=== PATIENT | female | born 1975 | race Caucasian/White ===

== ENCOUNTER → 2017-12-05 | Outpatient (CLI) | payer OTHER | LOC: FIMAGING 12:13 → MERGE 12:13 | PROVIDERS: ATTEND Physician Assistant | DX: N60.01 Solitary cyst of right breast (principal); R92.8 Other abnormal and inconclusive findings on diagnostic imaging of breast ==

== ENCOUNTER → 2018-10-22 | Outpatient (CLI) | payer OTHER | LOC: FIMAGING 08:29 | PROVIDERS: ATTEND Physician Assistant | DX: Z12.31 Encounter for screening mammogram for malignant neoplasm of breast (principal) ==